=== PATIENT | female | born 1965 | race Caucasian/White ===

== ENCOUNTER 2018-06-26 08:02 | Outpatient (CLI) | payer OTHER | END 2018-06-26 08:06 | disposition home or self-care (01) | LOC: SONOGRAMA 08:02 | DX: E04.2 Nontoxic multinodular goiter (principal) ==

== ENCOUNTER 2024-02-27 20:14 | Emergency (ER) | payer OTHER ==
[~2024-02-27] VITALS: Ht 162.6 cm; Wt 113.4 kg
[2024-02-27] MEDS ORDERED: ROSUVASTATIN CA40 MG PO (21:15)
[2024-02-27] MEDS ORDERED: LOSARTAN-HCTZ1 EAC2 PO (21:15)
[2024-02-27] MEDS ORDERED: IBUPROFEN800 MG PO (21:15)
[2024-02-27] MEDS ORDERED: CEFTRIAXONE SODIUM 1,000 MG VIAL IM ONE (21:45)
[2024-02-27] MEDS ORDERED: DICLOFENAC SODI75 MG PO (21:45)
[2024-02-27] MEDS ORDERED: DUI500 PO (21:45)
[2024-02-27] MEDS ORDERED: TETANUS & DIPHTHERIA TOX,ADULT 0.5 ML VIAL IM ONE (21:45)
[2024-02-27] MEDS ORDERED: KETOROLAC TROMETHAMINE 60 MG VIAL IM ONE (21:45)
== END 2024-02-27 22:21 | disposition home or self-care (01) ==
LOC: ER 20:16
DX: S89.82XA Other specified injuries of left lower leg, initial encounter (principal); W19.XXXA Unspecified fall, initial encounter; Y93.89 Activity, other specified; Y92.89 Other specified places as the place of occurrence of the external cause; Y99.8 Other external cause status; I10 Essential (primary) hypertension
CPT/HCPCS: 90471; 90714; J1670

== ENCOUNTER 2024-02-28 10:35 | Emergency (ER) | payer OTHER ==
[~2024-02-28] VITALS: Ht 162.6 cm; Wt 113.4 kg
[~2024-02-28 10:35] MED LIST: DICLOFENAC SODI75 MG PO; DUI500 PO; IBUPROFEN800 MG PO; LOSARTAN-HCTZ1 EAC2 PO; ROSUVASTATIN CA40 MG PO
== END 2024-02-28 15:02 | disposition home or self-care (01) ==
LOC: ER 10:37
DX: R60.0 Localized edema (principal); I10 Essential (primary) hypertension

== ENCOUNTER 2024-04-14 07:46 | Outpatient (CLI) | payer OTHER | END 2024-04-14 07:56 | disposition home or self-care (01) | LOC: RAD 07:46 | PROVIDERS: ATTEND Internal Medicine | DX: S89.92XA Unspecified injury of left lower leg, initial encounter (principal) ==

== ENCOUNTER 2024-04-16 10:33 | Outpatient (CLI) | payer OTHER | END 2024-04-16 10:37 | disposition home or self-care (01) | LOC: SONOGRAMA 10:33 | PROVIDERS: ATTEND Pathology Anatomic Pathology & Clinical Pathology | DX: D34 Benign neoplasm of thyroid gland (principal); E07.89 Other specified disorders of thyroid; E04.2 Nontoxic multinodular goiter ==